=== PATIENT | male | born 1975 | race Caucasian/White ===

== ENCOUNTER 2020-06-07 15:24 | Emergency (ER) | payer OTHER, SELFPAY | END 2020-06-07 15:32 | disposition left against medical advice (07) | PROVIDERS: Emergency Provider Internal Medicine Hematology & Oncology; PCP Internal Medicine | DX: Z53.21 Procedure and treatment not carried out due to patient leaving prior to being seen by health care provider (principal) | CPT/HCPCS: 99199 ==

== ENCOUNTER 2025-05-20 18:49 | Emergency (ER) | payer OTHER, SELFPAY ==
[2025-05-20 19:00] VITALS: BP 149/96; PULSE 92; RESP 16; TEMP 36.5; O2SAT 98
--- NOTE | 2025-05-20 19:04 | ED_ITS ---
HPI - URI/Sore Throat General Chief Complaint: Upper Respiratory Infection Stated Complaint: cough/back pain Time Seen by Provider: 05/20/25 19:04 Source: patient Mode of arrival: ambulatory Limitations: no limitations History of Present Illness HPI Narrative: 49 yo M presents with c/o nasal congestion, sinus pressure, PND, cough for 8 days. Afebrile. Taking OTC sinus meds with little relief. Reports cough causing back pain. No CP or SOB. All systems reviewed and negative except as noted above. Related Data Home Medications ?Medication ?Instructions ?Recorded ?Confirmed ?Last Taken ?Type Symbicort 05/20/25 Unknown History Vyvanse 05/20/25 Unknown History albuterol sulfate 90 mcg/actuation 2 inh inhalation Q4-6H PRN 05/20/25 Unknown History breath activated powder inhaler shortness of breath or wheezing hydrocodone-acetaminophen 05/20/25 Unknown History Allergies Allergy/AdvReac Type Severity Reaction Status Date / Time No Known Allergies Allergy Verified 05/20/25 19:03 Review of Systems Review of Systems: CONSTITUTIONAL: Denies fever, chills, or sweats. EYES: Denies visual changes, redness, or discharge. ENT: reports rhinorrhea, congestion, sinus pressure, postnasal drainage. Denies sore throat, or otalgia. CARDIOVASCULAR: Denies chest pain, palpitations, or edema. RESPIRATORY: reports cough. Denies dyspnea. GASTROINTESTINAL: Denies abdominal pain, nausea, vomiting, or diarrhea. GENITOURINARY: Denies dysuria or hematuria. SKIN: Denies rash or itching. MUSCULOSKELETAL: Denies back pain, joint pain, or myalgia. NEUROLOGIC: Denies headache, numbness, or weakness. PSYCHIATRIC: Denies anxiety or depression. All other systems reviewed are negative, except as documented in HPI. PMFSH Comments At time of signature, agree with nursing past medical, surgical, social and family history. There is no relevant family history pertinent to the presenting complaint. Exam Narrative: GENERAL: This is a well-nourished, well-developed patient, in no apparent distress. HEAD: normocephalic, atraumatic. EYES: PERRL. Sclera clear/white. Vision is grossly intact. EARS: External ears normal, auditory canals clear and without drainage, TMs normal without perforation. Hearing grossly intact. NOSE: External nose normal with purulent nasal drainage, erythema and swelling to bilateral nares, maxillary sinus tenderness on palpation worse to right side THROAT: Mucous membranes moist, erythema with postnasal drainage NECK: Neck supple, non-tender without lymphadenopathy, masses or thyromegaly. CARDIOVASCULAR: Regular rate and rhythm without murmurs, gallops, or rubs. RESPIRATORY: Clear to auscultation. Breath sounds equal bilaterally. No wheezes, rales, or rhonchi. SKIN: warm, Dry, intact with no suspicious lesions or rash, good texture and turgor. NEURO: awake, alert, and oriented to person, place and time. There were no obvious focal neurologic abnormalities. EXTREMITIES: No joint tenderness, effusion, or edema noted. Course Course Level of Care: Express Care Visit Vital Signs Vital signs: Vital Signs Temperature 36.5 C 05/20/25 19:00 Pulse Rate 92 05/20/25 19:00 Respiratory Rate 16 05/20/25 19:00 Blood Pressure 149/96 H 05/20/25 19:00 Pulse Oximetry 98 05/20/25 19:00 Oxygen Delivery Room Air 05/20/25 19:00 Temperature 36.5 C 05/20/25 19:00 Pulse Rate 92 05/20/25 19:00 Respiratory Rate 16 05/20/25 19:00 Blood Pressure 149/96 H 05/20/25 19:00 Pulse Oximetry 98 05/20/25 19:00 Oxygen Delivery Room Air 05/20/25 19:00 reviewed MDM - URI/Sore Throat MDM Narrative Medical decision making narrative: will treat patient for bacterial sinusitis due to duration of symptoms and exam findings. Patient is alert, nontoxic. Agrees with plan of care. Differential Diagnosis Differential diagnosis: Likely upper respiratory infection, sinusitis, viral infection and bronchitis Discharge Plan Discharge Clinical Impression: Acute bacterial sinusitis Patient Disposition: Home Condition: Stable Instructions: Antibiotic Form, Sinusitis (ED) Additional Instructions: Take medications as prescribed. Purchase [id number] pseudoephedrine for sinus congestion and take as directed on packaging. Place cool mist humidifier in bedroom where you sleep. Drink at least 64 oz of water a day. Patient Language: Japanese Prescriptions: New benzonatate 200 mg capsule 200 mg PO TID PRN (Reason: cough) Qty: 20 0RF prednisone 20 mg tablet 40 mg PO DAILY 5 Days Qty: 10 0RF amoxicillin 875 mg tablet 875 mg PO Q12H 10 Days Qty: 20 0RF loratadine [Claritin] 10 mg tablet 10 mg PO DAILY Qty: 30 0RF No Action Vyvanse hydrocodone-acetaminophen Symbicort albuterol sulfate 90 mcg/actuation aerosol powdr breath activated 2 inh inhalation Q4-6H PRN (Reason: shortness of breath or wheezing) Follow-up/Referrals: UNKNOWN,DOCTOR [Primary Care Provider] - Time of Disposition: 19:13
== END 2025-05-20 19:15 | disposition home or self-care (01) ==
PROVIDERS: Emergency Provider Nurse Practitioner Family
DX: J01.90 Acute sinusitis, unspecified (principal); B96.89 Other specified bacterial agents as the cause of diseases classified elsewhere; Z79.891 Long term (current) use of opiate analgesic
CPT/HCPCS: 99213; G0463